=== PATIENT | female | born 1965 | race Caucasian/White ===

== ENCOUNTER 2020-06-02 09:04 | Outpatient (CLI) | payer OTHER, SELFPAY ==
--- NOTE | ~2020-06-02 | MM_ITS ---
EXAMINATION: MM screening [facility] BI w [facility] HISTORY: Screening TECHNIQUE: Craniocaudal and mediolateral oblique 3-D tomosynthesis images were obtained and synthetic 2-D images were generated. CAD analysis was submitted and interpreted. COMPARISON: Comparison to multiple prior studies sequentially, with oldest reviewed study dated 01/2011. BREAST PARENCHYMAL COMPOSITION: There are scattered areas of fibroglandular density. FINDINGS: There is no evidence of suspicious mass, calcification, or architectural distortion to sugg est malignancy in either breast. There has been no suspicious interval change. IMPRESSION: 1. No mammographic evidence of malignancy. 2. Recommend routine screening mammography in one year. BI-RADS Category 1: Negative Reviewed, dictated and finalized at location A. [facility]
== END 2020-06-02 09:05 | disposition home or self-care (01) ==
LOC: ANHIMG 09:08
PROVIDERS: PCP Family Medicine Adolescent Medicine; Visit Provider Student in an Organized Health Care Education/Training Program
DX: Z12.31 Encounter for screening mammogram for malignant neoplasm of breast (principal)
CPT/HCPCS: 77063; 77067

== ENCOUNTER 2022-09-20 09:56 | Outpatient (CLI) | payer OTHER, SELFPAY ==
--- NOTE | ~2022-09-20 | XR_ITS ---
Right Knee Technique: AP, lateral, and sunrise views were obtained. Clinical History: Pain Findings: No fracture or dislocation is seen. Osseous alignment is anatomic. There is mild spurring a t the medial joint line. Soft tissues are unremarkable. No joint effusion is seen. Impression: Mild spurring at the medial joint line. Reviewed, dictated and finalized at location . Impression: Mild spurring at the medial joint line.
== END 2022-09-20 09:57 | disposition home or self-care (01) ==
PROVIDERS: PCP Family Medicine Adolescent Medicine; Visit Provider Nurse Practitioner Family
DX: M25.561 Pain in right knee (principal)
CPT/HCPCS: 73562

== ENCOUNTER 2022-12-03 08:00 | Outpatient (RCR) | payer OTHER, SELFPAY ==
--- NOTE | 2022-11-05 10:42 | OPREHPOC ---
Outpatient Therapy Plan of Care This is a Multidisciplinary Plan of Care that may contain components documented by all disciplines (PT, OT, and ST.) PT Problem 1 PT Problem #1 Knowledge Deficit PT Goal 1 Goal Independent with HEP Target Visit 6 PT Problem 2 PT Problem #2 Impaired Strength PT Goal 1 Goal increase R hamstrings to 4+/5 Target Visit 6 PT Goal 2 Goal Increase R quads to 5/5 Target Visit 6 PT Problem 3 PT Problem #3 Pain PT Goal 1 Goal decrease pain to 2/10 after riding recumbent bike Target Visit 6 PT Problem 4 PT Problem #4 Impaired Endurance PT Goal 1 Goal able to be on recumbent bike for 15 minutes. Target Visit 6 PT Problem 5 PT Problem #5 Impaired Range of Motion PT Goal 1 Goal Increasee R knee to 120 degrees flexion Target Visit 6
--- NOTE | 2022-11-05 10:42 | PTOPEVAL1 ---
Assessment and note entered by Jose Daniel Marie, PT Evaluation Information Assessment Status Evaluation Diagnosis Unilateral primary OA of the R knee Subjective Information Patient has had chronic pain in her R knee resulting in a few times the patient's knee giving out on her resulting in falls the last time down her stairs also causing injuries to her ribs. Patient received a cortisone shot on 10/22/22 and she reports big improvement since then. Patient still having trouble with going down stairs leading with the RLE and going down a step at a time. She also has trouble with squatting down and walking. Reports no N/T or trouble sleeping. Patient reports her X-rays show bone spurs, significant loss of cartilage, and a meniscal tear . PLanning on an MRI next time she sees Dr. Adames. Reported Pain Level Pain Score 4: Self Report Assessment PT Clinical Summary Roberta is a 57 year old female coming into the clinic with a diagnosis of Unilateral primary OA of the R knee. Patient has positive varus stress test at neutral and 30 degrees flexion, some tenderness along the medial joint line and with superior inferior glides of the patella, decreased flexion compared to the L knee, and decreased strength compared to the L knee. Physical therapy will work on improving strength and range of motion with exercises, modalities, and manual therapy. Plan of Care Interventions Electrical Stimulation,Gait Training,Hot Pack/Cold Pack,Manual Therapy,Neuro Re-education,Patient/ Caregiver Education,Therapeutic Activities, Therapeutic Exercise,Ultrasound Other Interventions cupping, taping, IASTM PT Services Indicated Yes Treatment Frequency and 1-2x/wk for 4 weeks Duration These treatments will address the objective and functional deficits as defined above. The patient will be advanced safely and appropriately in order for the patient to progress towards his/her prior level of function. Additional exercises will be introduced and as well as a comprehensive home exercise program upon discharge, if needed, ?to ensure carryover of functional gains achieved in the clinic. This treatment plan has been reviewed and agreement upon by the patient.
--- NOTE | 2022-12-03 08:37 | PTOPDC ---
Assessment and note entered by Jose Daniel Marie, PT Evaluation Information Assessment Status Discharge Diagnosis Unilateral primary OA of the R knee. Subjective Information Patient reports she has been doing well since the cortisone shot. Patient has been on her recumbent bike or her mom's restorator for up to the 40 minutes at a time without issue. The patient is going up and down her stairs without issues even though she is doing one step at a time. Patient has an appointment with Dr. Adames at the end of December for a possible MRI. Patient has been doing her exercises faithfully. Reported Pain Level Pain Score 4: Self Report Assessment PT Clinical Summary Roberta is a 57 year old female coming into the clinic with a diagnosis of OA of the R knee. Patient was evaluated on 11/05/22 and has attended 9 sessions. She has met all of her goals and feels okay with continuing her HEP and stopping skilled physical therapy until after she sees Dr. Adames in about a month and progress from there. Discharged from skilled physical therapy. Plan of Care PT Services Indicated No
== END 2022-12-03 15:12 | disposition home or self-care (01) ==
LOC: ANHPT 08:00
PROVIDERS: PCP Family Medicine Adolescent Medicine; Visit Provider Orthopaedic Surgery
DX: M17.11 Unilateral primary osteoarthritis, right knee (principal); M25.561 Pain in right knee
CPT/HCPCS: 97110; 97112; 97161; 97530

== ENCOUNTER 2023-01-10 01:14 | Day surgery (SDC) | payer OTHER, SELFPAY ==
[2022-12-27 14:04] VITALS: BMI 36.6
[2023-01-10 07:43] VITALS: BP 151/89; PULSE 69; RESP 17; TEMP 36.3; O2SAT 100; BMI 38.9
--- NOTE | 2023-01-10 07:49 | WPDANESEPPF ---
Anes - Initial Pre Proc Eval Procedure: Operation Date: 01/10/23 08:30 Proposed Procedures p Colonoscopy - Faisal Juan MD Date/Time: 01/10/23 07:49 Surgeon: Faisal Juan MD Pre Op Diagnosis: hx colon polyps Patient Data Age: 57 Gender: F Height: 1.78 m Weight: 123.1 kg Last Vital Signs Temp 36.3 C L 01/10/23 07:43 Pulse 69 01/10/23 07:43 Resp 17 01/10/23 07:43 BP 151/89 H 01/10/23 07:43 Pulse Ox 100 01/10/23 07:43 O2 Del Method Room Air 01/10/23 07:43 Allergies Allergy/AdvReac Type Severity Reaction Status Date / Time benztropine Allergy Unknown Visual Verified 01/10/23 07:42 disturbance haloperidol Allergy Unknown Visual Verified 01/10/23 07:42 disturbance mold Allergy Unknown Congestion Verified 01/10/23 07:42 of throat Home Medications Medication Instructions Recorded Confirmed Type docusate sodium 100 mg capsule 100 mg PO DAILY 01/28/20 01/10/23 History (Colace) lactobacillus combination no.9 4 4,000 mmu cells PO DAILY 01/28/20 01/10/23 History billion cell capsule (Adult 50 Plus Probiotic) lamotrigine 300 mg tablet,extended 300 mg PO DAILY 01/28/20 01/10/23 History release 24 hr multivitamin (Multiple Vitamins 1 tablet PO DAILY 01/28/20 01/10/23 History tablet) polyethylene glycol 3350 17 17 gm PO BID 01/28/20 01/10/23 History gram/dose oral powder (Miralax) quetiapine 100 mg tablet (Seroquel) 100 mg PO BID 01/28/20 01/10/23 History sertraline 100 mg tablet (Zoloft) 100 mg PO DAILY 01/28/20 01/10/23 History cholecalciferol (vitamin D3) 50 50 mcg PO DAILY 01/30/21 01/10/23 History mcg (2,000 unit) capsule aripiprazole 5 mg tablet (Abilify) 2.5 mg PO DAILY 11/09/21 01/10/23 History calcium citrate 200 mg (950 mg) 400 mg PO BID 09/20/22 01/10/23 History tablet glucosamine sulfate 500 mg tablet 1,500 mg PO DAILY 09/20/22 01/10/23 History (Glucosamine) magnesium citrate 125 mg capsule 250 mg PO DAILY 09/20/22 01/10/23 History d-mannose 500 mg capsule 1,000 mg PO BID 09/22/22 01/10/23 History nystatin 100,000 unit/gram topical 1 applic topical BID #30 grams 10/31/22 01/10/23 Rx cream orlistat 60 mg capsule (Horacio) 60 mg PO ONCE 10/31/22 01/10/23 History estradiol 0.01% (0.1 mg/gram) 1 g vaginal 2XW #42.5 grams 11/12/22 01/10/23 Rx vaginal cream (Estrace) estradiol 0.01% (0.1 mg/gram) See Rx Instructions vaginal 11/12/22 01/10/23 Rx vaginal cream (Estrace) .COMPLEX #42.5 grams atorvastatin 80 mg tablet 80 mg PO DAILY #90 tabs 12/06/22 01/10/23 Rx Patient hx anesthesia problems: none Family hx anesthesia problems: none Results Review: All pre-operative results and documents have been reviewed as part of the pre-operative evaluation. [facility], [facility] Past Medical History Medical History Arthritis of right knee Bipolar 1 disorder Depression Hyperlipidemia Surgical History Surgical History History of colonoscopy with polypectomy 2012,2017 History of hysterectomy 2011 History of strabismus surgery Family History Family History Mother Hypertension Father Carcinoma of colon Grandparent Family history of malignant neoplasm of breast in first degree relative Other Diabetes mellitus Social History Social History Smoking status: Never smoker Second hand tobacco smoke exposure: No Alcohol intake: never Substance use: never Substance use type: does not use Lack of Transportation: No Lack of Food: Never True Current Housing: I Have Housing Concerned About Future Housing: No Difficulty Paying Gas/Electric Bills: No Difficulty Paying for Meds: No Currently Unemployed: No Education: High School Diploma/GED Difficulty w/ Childcare or Family Care: No
[2023-01-10] MEDS: LACTATED RINGERS 1,000 ML 150 ML IV CONT (07:51)
--- NOTE | 2023-01-10 08:26 | PM.HPGS ---
History of Present Illness History of Present Illness Consent: Risks, benefits, and alternatives have been discussed and questions answered. Patient agrees to proceed with procedure. Chief complaint: hx colon polyps Narrative: Roberta Cade is a 57 year old female with colon polyp 6 years ago, father also had colon cancer Review of Systems Constitutional: Constitutional: Denies headache(s) and Denies weakness Eyes: Eyes: Denies blurry vision ENT: Reports Normal hearing present, Denies headache(s) and Denies neck pain Cardiovascular: Cardiovascular: Denies chest pain and Denies dyspnea Respiratory: Respiratory: Denies dyspnea Gastrointestinal: Gastrointestinal: Reports no additional gastrointestinal complaints Genitourinary: Genitourinary: Denies dysuria Musculoskeletal: Musculoskeletal: Denies neck pain Integumentary/Breasts: Skin/Breast: Denies dry skin Neurologic: Reports Normal hearing present, Denies headache(s) and Denies weakness Psychiatric: Psychiatric: Denies anxiety Endocrine: Endocrine: Denies change in body appearance Hematologic/Lymphatic: Hematologic/Lymphatic: Denies easy bleeding Allergic/Immunologic: Allergic/Immunologic: Denies urticaria PMFSH Past Medical History Medical History (Updated 01/10/23 @ 08:27 by Faisal Juan MD) Adenomatous colon polyp Arthritis of right knee Bipolar 1 disorder Depression Hyperlipidemia Surgical History Surgical History History of colonoscopy with polypectomy 2012,2017 History of hysterectomy 2011 History of strabismus surgery Family History Family History Mother Hypertension Father Carcinoma of colon Grandparent Family history of malignant neoplasm of breast in first degree relative Other Diabetes mellitus Social History Social History Smoking status: Never smoker Second hand tobacco smoke exposure: No Alcohol intake: never Substance use: never Substance use type: does not use Lack of Transportation: No Lack of Food: Never True Current Housing: I Have Housing Concerned About Future Housing: No Difficulty Paying Gas/Electric Bills: No Difficulty Paying for Meds: No Currently Unemployed: No Education: High School Diploma/GED Difficulty w/ Childcare or Family Care: No Living arrangements: alone Occupation/Education: occupation Gender identity (if verbalized by the patient): Female Sexual Orientation (if Verbalized by the Patient): Straight or Heterosexual Spiritual care concerns: No Agree to blood products: Yes Meds Home Medications and Allergies Home Medications Medication Instructions Recorded Confirmed Type docusate sodium 100 mg capsule 100 mg PO DAILY 01/28/20 01/10/23 History (Colace) lactobacillus combination no.9 4 4,000 mmu cells PO DAILY 01/28/20 01/10/23 History billion cell capsule (Adult 50 Plus Probiotic) lamotrigine 300 mg tablet,extended 300 mg PO DAILY 01/28/20 01/10/23 History release 24 hr multivitamin (Multiple Vitamins 1 tablet PO DAILY 01/28/20 01/10/23 History tablet) polyethylene glycol 3350 17 17 gm PO BID 01/28/20 01/10/23 History gram/dose oral powder (Miralax) quetiapine 100 mg tablet (Seroquel) 100 mg PO BID 01/28/20 01/10/23 History sertraline 100 mg tablet (Zoloft) 100 mg PO DAILY 01/28/20 01/10/23 History cholecalciferol (vitamin D3) 50 50 mcg PO DAILY 01/30/21 01/10/23 History mcg (2,000 unit) capsule aripiprazole 5 mg tablet (Abilify) 2.5 mg PO DAILY 11/09/21 01/10/23 History calcium citrate 200 mg (950 mg) 400 mg PO BID 09/20/22 01/10/23 History tablet glucosamine sulfate 500 mg tablet 1,500 mg PO DAILY 09/20/22 01/10/23 History (Glucosamine) magnesium citrate 125 mg capsule 250 mg PO DAILY 09/20/22 01/10/23 History d-mannose 500 mg caps
[2023-01-10 08:47] VITALS: BP 114/69; PULSE 66; RESP 15; O2SAT 99
[2023-01-10 08:57] VITALS: BP 136/67; PULSE 61; RESP 14; O2SAT 100
[2023-01-10 09:07] VITALS: BP 122/67; PULSE 62; RESP 17; O2SAT 98
== END 2023-01-10 09:18 | disposition home or self-care (01) ==
PROVIDERS: PCP Family Medicine Adolescent Medicine; Visit Provider Internal Medicine Gastroenterology
PROC: 0DJD8ZZ Inspection of Lower Intestinal Tract, Via Natural or Artificial Opening Endoscopic (ICD-10-PCS; CPT 45378; principal; 2023-01-10 08:30)
DX: Z12.11 Encounter for screening for malignant neoplasm of colon (principal); K64.8 Other hemorrhoids; Z86.010 Personal history of colon polyps; Z80.0 Family history of malignant neoplasm of digestive organs; F31.9 Bipolar disorder, unspecified; E78.5 Hyperlipidemia, unspecified; E66.9 Obesity, unspecified; Z68.38 Body mass index [BMI] 38.0-38.9, adult
CPT/HCPCS: 45378; J2704; J7120

== ENCOUNTER 2023-08-12 09:06 | Outpatient (CLI) | payer OTHER, SELFPAY ==
--- NOTE | ~2023-08-12 | MM_ITS ---
EXAMINATION: MM screening [facility] BI w [facility] HISTORY: Screening mammogram TECHNIQUE: Craniocaudal and mediolateral oblique 3-D tomosynthesis images were obtained and synthetic 2-D images were generated. CAD analysis was submitted and interpreted. COMPARISON: 06/02/2020, 12/15/2018 bilateral screening mammogram examinations BREAST PARENCHYMAL COMPOSITION: There are scattered areas of fibroglandular density. FINDINGS: There is no evidence of suspicious mass, calcification, or architectural distortion to sugg est malignancy in either breast. There has been no suspicious interval change. IMPRESSION: 1. No mammographic evidence of malignancy. 2. Recommend routine screening mammography in one year. BI-RADS Category 1: Negative Reviewed, dictated and finalized at location A.
== END 2023-08-12 09:07 | disposition home or self-care (01) ==
PROVIDERS: PCP Family Medicine Adolescent Medicine; Visit Provider Obstetrics & Gynecology
DX: Z12.31 Encounter for screening mammogram for malignant neoplasm of breast (principal)
CPT/HCPCS: 77063; 77067